=== PATIENT | female | born 1950 | race Caucasian/White ===

== ENCOUNTER 2017-04-29 17:45 | Emergency (ER) | payer OTHER, MEDICAID ==
[~2017-04-29] VITALS: Ht 175.3 cm; Wt 115.0 kg
[2017-04-29] MEDS ORDERED: MORPHINE 4 MG/ML 1ML SYRINGE IV ONE ×2 (18:15→19:00)
[2017-04-29] MEDS ORDERED: ONDANSETRON 4MG/2ML VIAL (J2405) IV ONE ×2 (18:15→19:45)
[2017-04-29] MEDS ORDERED: TETANUS/DIPHTHERIA TOX ADSORB ADULT 0.5ML SYR/VIAL (90714) IM ONE (18:30)
--- NOTE | 2017-04-29 19:17 | REP ---
LEFT ELBOW: Limited AP and lateral views of the left elbow are performed. On the lateral view the posterior aspect of the distal humerus and olecranon are not visualized. No definite fracture or dislocation is seen in the visualized osseous structures. IMPRESSION: No definite fracture or dislocation on this limited 2 view exam as discussed above. Signed by Pierre Regalado MD 04/29/2017 08:20 P
--- NOTE | 2017-04-29 19:19 | REP ---
LEFT SHOULDER, TWO VIEWS: Two views of the left shoulder are performed. There is anterior dislocation of the humeral head from the glenoid fossa. There is a fracture of the humeral head involving the greater tuberosity, which is displaced laterally. IMPRESSION: Anterior dislocation of the humeral head. Fracture of the greater tuberosity of the humeral head with lateral displacement of the fracture fragment. Signed by Pierre Regalado MD 04/29/2017 08:20 P
--- NOTE | 2017-04-29 19:20 | REP ---
CHEST, SINGLE VIEW: Single AP view of the chest is performed. There is poor ventilation with bibasilar fibro atelectasis but no consolidation. Cardiomediastinal silhouette appears mildly magnified. Left humeral head is anteriorly dislocation from the glenoid fossa and there is an associated fracture of the humeral head with displacement of greater tuberosity fracture fragment laterally. IMPRESSION: No consolidating infiltrate. Signed by Pierre Regalado MD 04/29/2017 08:20 P
[2017-04-29] MEDS ORDERED: NS 1,000 ML IV SCH (19:41)
[2017-04-29] MEDS ORDERED: LIDOCAINE 1% SDV INJ 30 ML VIAL SC SCH (19:45)
[2017-04-29] MEDS ORDERED: LIDOCAINE 1% MDV 20ML VIAL As Ordered ONE (19:58)
[2017-04-29] MEDS ORDERED: PROPOFOL 200 MG/20 ML VIAL IV PRN ×2 (20:00→20:45)
[2017-04-29] MEDS ORDERED: KETAMINE HCL 200 MG/20 ML VIAL IV ONE (20:00)
[2017-04-29] MEDS ORDERED: fentaNYL 100 MCG/2 ML INJECTION (J3010) IV ONE (20:30)
[2017-04-29] MEDS ORDERED: NEOSPORIN OINT 0.9 GM PKT (FLOOR STOCK) As Ordered ONE (22:36)
[2017-04-29] MEDS ORDERED: NORCO 5/325MG TABLET (BULK FOR ED) PO ONE (23:00)
[2017-04-29] MEDS ORDERED: NORCOTAB PO (23:00)
[2017-04-29 23:04] VITALS: BP 153/74
--- NOTE | 2017-04-30 14:15 | REP ---
LEFT SHOULDER: Three views of the left shoulder are performed. There is reduction of the previously noted anterior dislocation of the humeral head with the humeral head now well seated in the glenoid fossa. There is a fracture of the greater tuberosity of the humeral head. This is very mildly displaced. Signed by Pierre Regalado MD 04/30/2017 03:22 P
--- NOTE | 2017-04-30 22:22 | ER ---
DATE OF CONSULTATION: 04/29/2017 CHIEF COMPLAINT: Left shoulder pain and deformity. HISTORY OF PRESENT ILLNESS: The patient fell today on her outstretched left hand, scraping her forehead and dislocating her left shoulder, and presented promptly to the emergency room. Denies any loss of consciousness or mental status changes, just feeling some superficial pain regarding the head injury. Primary issue at this time is shoulder pain and deformity. No other active complaints at this time. Denies any significant past medical or surgical history. No current medications. No allergies to medications. Recently has been feeling well. No fevers, chills, nausea, vomiting, no diarrhea, constipation, chest pain or shortness of breath. EXAMINATION: Awake, alert, and oriented times three, well-appearing female in no acute distress. Appropriately dressed, well nourished. Head is normocephalic. There is a superficial abrasion above the left forehead in the hairline. No active bleeding. Extraocular muscles are intact. Mental status is normal. Focused examination of the left upper extremity: There is swelling and deformity consistent with anterior glenohumeral dislocation on the left. The skin is intact in this area and she is grossly fully neurovascularly intact throughout the left upper extremity, 2+ radial pulse. Radial, medial and ulnar nerve function in the hand. Sensation intact to light touch in the axillary nerve distribution. The right upper and bilateral lower extremities are grossly atraumatic. X-rays of the left shoulder show anterior glenohumeral dislocation with associated greater tuberosity fracture. Left elbow x-rays no acute fracture. ASSESSMENT: Fracture dislocation of the left glenohumeral joint as above. PLAN: I discussed the treatment options with the patient, and all her questions were answered. I discussed the risks and benefits of treatment, and she elected to go forward with closed reduction of the left shoulder under conscious sedation. Conscious sedation was provided by Dr. Simmons. A closed reduction was performed with satisfactory effect following this. Range of motion was good at least 50% of normal flexion, external rotation was stable. Post-reduction confirmed satisfactory glenohumeral reduction. The greater trochanter piece is minimally displaced in a slightly inferior lateral direction, and on emerging from anesthesia, she is grossly neurovascularly intact in the left upper extremity with no changes. Hand is pink, warm, well perfused, with less than two seconds capillary refill in all of her fingertips, and 2+ radial pulse. The plan at this time, I discussed with her the options, and she is electing to discharge to home with a sling. Elbow, wrist and hand range of motion gently to prevent stiffness. Followup in the outpatient orthopedic clinic as soon as possible for evaluation and pain control at the discretion of the emergency room staff, and counseled regarding neurovascular monitoring of the left upper extremity. Return promptly for any concerns.
== END 2017-04-29 23:21 | disposition home or self-care (01) ==
LOC: M ED 17:45 → EDBD 17:45 → M ED 23:21
DX: S42.252A Displaced fracture of greater tuberosity of left humerus, initial encounter for closed fracture (principal); S43.015A Anterior dislocation of left humerus, initial encounter; W18.09XA Striking against other object with subsequent fall, initial encounter; Y92.019 Unspecified place in single-family (private) house as the place of occurrence of the external cause; Y93.89 Activity, other specified; Y99.8 Other external cause status
CPT/HCPCS: 23650; 71010; 73030; 73070; 90471; 90714; 93041; 94760; 96374; 96375; 96376; 99285; J2405

== ENCOUNTER → 2024-06-25 | Outpatient (CLI) | payer MEDICARE, MEDICAID ==
[~2024-06-25] MED LIST: HYDR-3715 PO
== END ==
LOC: M PLARAD 07:42
PROVIDERS: ATTEND Internal Medicine Hematology & Oncology
DX: C43.61 Malignant melanoma of right upper limb, including shoulder (principal)
CPT/HCPCS: 78816; A9552

== ENCOUNTER → 2024-11-19 | Outpatient (CLI) | payer MEDICARE, MEDICAID | LOC: M PLARAD 10:16 | PROVIDERS: ATTEND Nurse Practitioner Adult Health | DX: C43.62 Malignant melanoma of left upper limb, including shoulder (principal) | CPT/HCPCS: 78816; A9552 ==

== ENCOUNTER → 2025-04-30 | Outpatient (CLI) | payer MEDICARE, MEDICAID | LOC: M PLARAD 09:50 | PROVIDERS: ATTEND Internal Medicine Hematology & Oncology | DX: C43.61 Malignant melanoma of right upper limb, including shoulder (principal) | CPT/HCPCS: 78816; A9552 ==